=== PATIENT | male | born 1980 | race Caucasian/White ===

== ENCOUNTER → 2016-06-02 | Outpatient (CLI) | payer OTHER | END | disposition home or self-care (01) | LOC: C.PATHSPEC 11:01 | PROVIDERS: ATTEND Urology | DX: R31.0 Gross hematuria (principal) ==

== ENCOUNTER → 2016-06-03 | Outpatient (CLI) | payer OTHER ==
[2016-06-03 12:42] LABS: BLOOD UREA NITROGEN 14 mg/dl (7-18); BUN/CREATININE RATIO 15.2 (10-20); CARBON DIOXIDE 30 mmol/L (21-32); CHLORIDE 104 mmol/L (98-107); CREATININE 0.91 mg/dl (0.60-1.40); GLUCOSE 91 mg/dl (70-99); POTASSIUM 4.5 mmol/L (3.5-5.1); SODIUM 140 mmol/L (136-145)
[2016-06-03 12:53] LABS: CALCIUM 9.4 mg/dl (8.5-10.1)
== END | disposition home or self-care (01) ==
LOC: C.LAB 11:13
PROVIDERS: ATTEND Urology
DX: R31.0 Gross hematuria (principal)

== ENCOUNTER → 2016-06-06 | Outpatient (CLI) | payer OTHER ==
[~2016-06-06] MED LIST: OPTIRAY 320 IV PRN
--- NOTE | 2016-06-06 13:32 | DIAGNOSTIC IMAGING REPORT ---
CT OF THE ABDOMEN AND PELVIS WITH AND WITHOUT CONTRAST HEMATURIA PROTOCOL CLINICAL HISTORY: Microscopic hematuria. COMPARISON STUDY: None. TECHNIQUE: Unenhanced and split bolus phase imaging of the abdomen and pelvis was performed. Injection of 116 cc Optiray [address] DOSE: 770.52 mGycm FINDINGS: No renal, ureteral or bladder calculi are present. There is no hydronephrosis or hydroureter. No upper tract urothelial lesions are identified. No abnormalities are identified within the bladder by CT no solid renal lesions are present. Two small left renal lesions measure near water attenuation and are suggestive of cysts. These measure up to 9 mm. There is a 9 mm hypodense splenic lesion which is indeterminate but likely benign. The liver, some adrenal glands and pancreas are normal. There is no evidence for bowel obstruction. There is no lymphadenopathy. Caliber and wall thickness of small and large bowel are normal. Skeletal structures are unremarkable. There is no ascites. IMPRESSION: 1. No CT findings to explain hematuria. No urinary calculi or hydronephrosis. No upper tract urothelial lesions. 2. Two small left renal lesions suggestive of cysts. Electronically signed by: Fausto Felton M.D. 06/06/2016 1:31 PM Dictated Date/Time: 06/06/2016 1:22 PM
== END | disposition home or self-care (01) ==
LOC: C.CTS 12:55
PROVIDERS: ATTEND Urology
DX: R31.29 Other microscopic hematuria (principal)

== ENCOUNTER → 2016-10-18 | Outpatient (CLI) | payer OTHER | END | disposition home or self-care (01) | LOC: C.PATHSPEC 17:15 | PROVIDERS: ATTEND Urology | DX: D49.4 Neoplasm of unspecified behavior of bladder (principal) ==

== ENCOUNTER → 2016-10-18 | Outpatient (CLI) | payer OTHER | END | disposition home or self-care (01) | LOC: C.LABSPEC 16:57 | PROVIDERS: ATTEND Urology | DX: D49.4 Neoplasm of unspecified behavior of bladder (principal) ==

== ENCOUNTER → 2016-10-26 | Outpatient (CLI) | payer OTHER | END | disposition home or self-care (01) | LOC: C.LABSPEC 11:07 | PROVIDERS: ATTEND Urology | DX: R39.15 Urgency of urination (principal) ==